=== PATIENT | female | born 1995 | race Caucasian/White ===

== ENCOUNTER 2016-09-06 20:44 | Emergency (ER) | payer OTHER ==
--- NOTE | 2016-09-06 21:48 | DIAGNOSTIC IMAGING REPORT ---
PROCEDURE: XR KNEE 4 VIEWS - RIGHT INDICATION: POST REDUCTION TECHNIQUE: Four views of the right knee. COMPARISON: None. FINDINGS: Normal mineralization. No fractures. Normal osseous alignment. No joint effusion. No suspicious soft-tissue calcification or radiodense foreign bodies. IMPRESSION: 1. Intact right knee.
--- NOTE | 2016-09-06 21:56 | ED NURSING NOTES ---
Clinical Report - Nurses [facility] [address] [place] [address] 09/06/2016 20:44 Patient: ISAÍAS ELAINE TRIAGE Triage time 20:50. Acuity: LEVEL 4. Chief Complaint: INJURY TO RIGHT KNEE. --21:00 Consuelo Denson R.N. 20:53 09/06/16. BP: 124/77 taken on the left arm, while lying. HR: 82 (regular and normal rate). RR: 18 (regular and unlabored). O2 saturation: 98%. Temp: 98.1 F (oral). Pain level now: 11/01. --21:00 Consuelo Denson R.N. Weight: 61.6 kg stated. Height/Length: 63 inches Per Patient. BMI: 24.1. --20:57 Consuelo Denson R.N. Medications None. --20:55 Consuelo Denson R.N. Allergies No Known Drug Allergy. --20:55 Consuelo Denson R.N. History Arrived by private vehicle. Historian: patient. Unaccompanied. Primary physician (none). This occurred today. ( pt thinks over extended while working out). 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 PAST MEDICAL HX: Tetanus status: up-to-date. Immunizations: up-to-date. Last normal menstrual period- July 2016. 2. Para 2. Sexual history - sexually active. No contraception. Denies current . SOCIAL HX: Never smoker. Occasional alcohol use; consumes wine by the glass occasionally. No drug use. No infectious disease exposure. ABUSE ASSESSMENT: No report of abuse. SELF HARM ASSESSMENT: A self harm assessment was performed. The patient answered "no" to the question "Have you recently felt down, depressed, or hopeless?", "Have you noticed less interest or pleasure in doing things?", "Do you have thoughts of harming or killing yourself?", "Are you here because you tried to hurt yourself?", "Have you ever tried to hurt yourself before today?", "Have you recently had thoughts about harming or killing others?" and "Do you have any dangerous items in your possession?". FALL RISK ASSESSMENT: Fall risk assessment completed. No fall risk identified. NUTRITIONAL RISK ASSESSMENT: The nutritional risk assessment revealed no deficiencies. FUNCTIONAL ASSESSMENT: Functional assessment: no impairments noted. LEARNING NEEDS ASSESSMENT: The learning needs assessment revealed no barriers. SKIN INTEGRITY ASSESSMENT: Skin integrity risk assessment completed. No skin integrity risk identified. --21:00 Consuelo Denson R.N. PROBLEMS: Tachycardia. Contusion. Fall. . --20:55 Consuelo Denson R.N. ADDITIONAL SURGERIES: Appendectomy. --20:55 Consuelo Denson R.N. . --20:55 Consuelo Denson R.N. Interventions ID band on patient. --21:00 Consuelo Denson R.N. PHYSICAL ASSESSMENT Ambulatory to room. GENERAL / NEURO / PSYCH: Oriented X 4. Alert. Appears in no acute distress. EXTREMITIES: Right knee: tenderness. SKIN: Skin intact. Skin is warm and dry. --21:00 Consuelo Denson R.N. NURSING PROGRESS NOTES Two patient identifiers checked. Call light placed in reach. Side rails up x 1. Bed placed in lowest position. Brakes of bed on. --21:01 Consuelo Denson R.N. Patient ready for evaluation- chart flagged. --21:01 Cosnuelo Denson R.N. 21:20 09/06/16. Patient returned from radiology by stretcher with tech. --21:20 Mariela Garcia R.N. DISPOSITION / DISCHARGE Condition at departure: improved. No learning barriers present. Discharge instructions provided and reviewed with the patient. Reviewed medication(s) side effects, precautions, dosing and course information. Prescription(s) given to the patient. Patient verbalized understanding. Written instructions provided in Guatemalan. No activity restrictions, note given or follow up contact number given. The patient was discharged home and unaccompanied at time of discharge. She left the Emergency Department ambulatory and via private vehicle. Patient driving. --22:11 Consuelo Denson R.N. 22:10 05/15/17. BP: deferred. HR: deferred. RR: deferred. O2 saturation: deferred. Temp: deferred. Pain level now deferred. --22:11 Consuelo Denson R.N. Departure time: 22:07. --22:12 Consuelo Denson R.N. Locked/Released at 09/06/2016 22:12 by Consuelo Denson R.N.
--- NOTE | 2016-09-06 21:56 | ED NURSING NOTES ---
Clinical Report - Nurses [facility] [address] [place] [address] 09/06/2016 20:44 Patient: ISAÍAS ELAINE TRIAGE Triage time 20:50. Acuity: LEVEL 4. Chief Complaint: INJURY TO RIGHT KNEE. --21:00 Consuelo Denson R.N. 20:53 09/06/16. BP: 124/77 taken on the left arm, while lying. HR: 82 (regular and normal rate). RR: 18 (regular and unlabored). O2 saturation: 98%. Temp: 98.1 F (oral). Pain level now: 11/01. --21:00 Consuelo Denson R.N. Weight: 61.6 kg stated. Height/Length: 63 inches Per Patient. BMI: 24.1. --20:57 Consuelo Denson R.N. Medications None. --20:55 Consuelo Denson R.N. Allergies No Known Drug Allergy. --20:55 Consuelo Denson R.N. History Arrived by private vehicle. Historian: patient. Unaccompanied. Primary physician (none). This occurred today. ( pt thinks over extended while working out). 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 PAST MEDICAL HX: Tetanus status: up-to-date. Immunizations: up-to-date. Last normal menstrual period- July 2016. 2. Para 2. Sexual history - sexually active. No contraception. Denies current . SOCIAL HX: Never smoker. Occasional alcohol use; consumes wine by the glass occasionally. No drug use. No infectious disease exposure. ABUSE ASSESSMENT: No report of abuse. SELF HARM ASSESSMENT: A self harm assessment was performed. The patient answered "no" to the question "Have you recently felt down, depressed, or hopeless?", "Have you noticed less interest or pleasure in doing things?", "Do you have thoughts of harming or killing yourself?", "Are you here because you tried to hurt yourself?", "Have you ever tried to hurt yourself before today?", "Have you recently had thoughts about harming or killing others?" and "Do you have any dangerous items in your possession?". FALL RISK ASSESSMENT: Fall risk assessment completed. No fall risk identified. NUTRITIONAL RISK ASSESSMENT: The nutritional risk assessment revealed no deficiencies. FUNCTIONAL ASSESSMENT: Functional assessment: no impairments noted. LEARNING NEEDS ASSESSMENT: The learning needs assessment revealed no barriers. SKIN INTEGRITY ASSESSMENT: Skin integrity risk assessment completed. No skin integrity risk identified. --21:00 Consuelo Denson R.N. PROBLEMS: Tachycardia. Contusion. Fall. . --20:55 Consuelo Denson R.N. ADDITIONAL SURGERIES: Appendectomy. --20:55 Consuelo Denson R.N. . --20:55 Consuelo Denson R.N. Interventions ID band on patient. --21:00 Consuelo Denson R.N. PHYSICAL ASSESSMENT Ambulatory to room. GENERAL / NEURO / PSYCH: Oriented X 4. Alert. Appears in no acute distress. EXTREMITIES: Right knee: tenderness. SKIN: Skin intact. Skin is warm and dry. --21:00 Consuelo Denson R.N. NURSING PROGRESS NOTES Two patient identifiers checked. Call light placed in reach. Side rails up x 1. Bed placed in lowest position. Brakes of bed on. --21:01 Consuelo Denson R.N. Patient ready for evaluation- chart flagged. --21:01 Consuelo Denson R.N. 21:20 09/06/16. Patient returned from radiology by stretcher with tech. --21:20 Mariela Garcia R.N. DISPOSITION / DISCHARGE Condition at departure: improved. No learning barriers present. Discharge instructions provided and reviewed with the patient. Reviewed medication(s) side effects, precautions, dosing and course information. Prescription(s) given to the patient. Patient verbalized understanding. Written instructions provided in Thai. No activity restrictions, note given or follow up contact number given. The patient was discharged home and unaccompanied at time of discharge. She left the Emergency Department ambulatory and via private vehicle. Patient driving. --22:11 Consuelo Denson R.N. 22:10 05/15/17. BP: deferred. HR: deferred. RR: deferred. O2 saturation: deferred. Temp: deferred. Pain level now deferred. --22:11 Consuelo Denson R.N. Departure time: 22:07. --22:12 Consuelo Denson R.N. Locked/Released at 09/06/2016 22:12 by Consuelo Denson R.N.
--- NOTE | 2016-09-06 21:56 | ED ORDER SUMMARY ---
..... Patient: ISAÍAS ELAINE OrderSheet [facility] VisitID: [id number] [address] [address] 20y, F Registration Date/Time: 09/06/2016 ORDER SHEET Weight: 61.6 kg (stated) Allergies: No Known Drug Allergy GENERAL ORDERS: Knee 4V Right Urgent (20:55 09/06/2016 HBivens A.R.N.P.) (Ack 21:01 Gee) (21:09 Yimi R.N.) Baldemar Wrap (21:53 09/06/2016 HBivens A.R.N.P.) (21:58 Yimi R.N.) MEDICATION ORDERS: IV FLUIDS: ORDER SHEET NOTES: [Electronically signed by Consuelo Denson R.N. (22:12 09/06/2016)] [Electronically signed by Ludmila Wu.R.N.P. (22:26 09/06/2016)] [Electronically locked/signed by Consuelo Denson R.N. (22:12 09/06/2016)]
--- NOTE | 2016-09-06 21:56 | ED CLINICAL REPORT ---
Clinical Report - Physicians/Mid Levels [facility] [address] [place] [address] 09/06/2016 20:44 Patient: ISAÍAS ELAINE Time Seen: 20:53; upon arrival, initial patient contact, initial documentation, patient care assumed. Arrived- By private vehicle. Historian- patient. HISTORY OF PRESENT ILLNESS Chief Complaint: Injury to right knee. The injury happened just prior to arrival. ( thinks she hyperextended it working out). Patient is experiencing moderate pain. Patient denies injury to the head or neck. No other injury. REVIEW OF SYSTEMS The patient complains of pain on weight bearing. No swelling, tingling, weakness, numbness or skin laceration. All systems otherwise negative, except as recorded above. PAST HISTORY See nurses notes. ( PROBLEMS: Tachycardia. Contusion. Fall. . --20:55 Consuelo Denson R.N. ADDITIONAL SURGERIES: Appendectomy. --20:55 Consuelo Denson R.N. . --20:55 Consuelo Denson, R.N.). SOCIAL HISTORY Never smoker. Occasional alcohol use; consumes wine. No drug use. No recent travel. Is a local resident. FAMILY HISTORY No significant family medical history. ADDITIONAL NOTES The nursing notes have been reviewed with agreement regarding the chief complaint, HPI, ROS, PMH and patient medications and allergies. PHYSICAL EXAM Vital Signs: 09/06/2016 20:53 BP: 124/77. HR: 82. RR: 18. O2 saturation: 98%. Temp: 98.1 F. Pain level now: 7/10. Have been reviewed as normal and appear to be correct. Appearance: Alert. Oriented X3. No acute distress. Head: Head atraumatic. Eyes: Pupils equal, round and reactive to light. Eyes normal inspection. Respiratory: No respiratory distress. Skin: Skin intact. Skin warm and dry. Normal skin color. Normal skin turgor. Extremities: Right knee: mild tenderness located in the patella, suprapatellar area and infrapatellar area. Neurovascular intact distally. No ligamentous laxity present. No joint effusion. No erythema, swelling, laceration, abrasion or ecchymosis. No puncture wound, foreign body or deformity. No limitation in ROM. Lower extremity exam otherwise negative. Extremities otherwise negative. Neuro, Vascular and Tendons: Vascular status intact. Sensation intact. Motor intact. Tendon function intact. Gait: Abnormal gait. Limping gait. Pain did not prevent testing gait. Neuro: Oriented X 3. No motor deficit. No sensory deficit. Note: isolated injury to knee. LABS, X-RAYS, AND EKG X-Rays: Right knee negative. Rt Knee X-ray: (IMPRESSION: 1. Intact right knee. Electronically Final signed by:Caryl Lynch MD 09/06/2016 9:48:19 PM). The X-rays were discussed with the radiologist. PROGRESS AND PROCEDURES Course of Care: 22:04 09/06/16. pt has leonid for frequent narcs, last rx 08/30 for #56 tylenol #3, pt getting narc rx almost weekly, #11 er visits and #8 of those for non emergent issues, see report for full details. Patient counseled in person regarding the patient's stable condition, test results and diagnosis. 2149. Differential Diagnosis: I considered fracture, stress fracture, bone contusion, sprain, hyperextension, dislocation, meniscus tear, anterior cruciate ligament tear, ligament tear, soft tissue injury, soft tissue hematoma and tendonitis as a possible cause of lower extremity pain in this patient. This is a partial list of diagnoses considered. Above considerations are based on history, physical exam, reassessment and X-Ray data. Differential diagnosis was discussed with patient. Disposition: Discharged home in good and improved condition (21:56). Condition: good and stable. CLINICAL IMPRESSION Sprain of the anterior cruciate ligament of the right knee. INSTRUCTIONS Apply ice for 20 minutes four times a day for one days until better. Don't apply ice directly to skin. Wear elastic wrap (Baldemar wrap) as directed for one weeks until better. Elevate affected areas above chest level for one days until better. Warnings: GENERAL WARNINGS: Return or contact your physician immediately if your condition worsens or changes unexpectedly, if not improving as expected, or if other problems arise. Specifically return if problem worsens. Prescription Medications: Naproxen 500 mg tablets: take 1 orally every 12 hours as needed for pain. Dispense twenty (20). No refills. Follow-up: Follow up with your doctor in about one week as needed. Call for an appointment. Summary of care provided to patient. Understanding of the discharge instructions verbalized by patient. (Electronically signed by Ludmila Wu A.R.N.P. 09/06/2016 22:26)
--- NOTE | 2016-09-06 21:56 | ED ORDER SUMMARY ---
..... Patient: ISAÍAS ELAINE OrderSheet [facility] VisitID: [id number] [address] [place] [address] 20y, F Registration Date/Time: 09/06/2016 ORDER SHEET Weight: 61.6 kg (stated) Allergies: No Known Drug Allergy GENERAL ORDERS: Knee 4V Right Urgent (20:55 09/06/2016 HBivens A.R.N.P.) (Ack 21:01 Gee) (21:09 Yimi R.N.) Baldemar Wrap (21:53 09/06/2016 HBivens A.R.N.P.) (21:58 Yimi R.N.) MEDICATION ORDERS: IV FLUIDS: ORDER SHEET NOTES: [Electronically signed by Consuelo Denson R.N. (22:12 09/06/2016)] [Electronically signed by Ludmila Wu.R.N.P. (22:26 09/06/2016)] [Electronically locked/signed by Consuelo Denson R.N. (22:12 09/06/2016)]
--- NOTE | 2016-09-06 22:26 | ED DISCHARGE INSTRUCTIONS ---
Patient: ISAÍAS ELAINE General Instructions [facility] VisitID: [id number] [address] [place] [address] 20y, F Registration Date/Time: 09/06/2016 Sprain of the anterior cruciate ligament of the right knee. INSTRUCTIONS Apply ice for 20 minutes four times a day for one days until better. Don't apply ice directly to skin. Wear elastic wrap (Baldemar wrap) as directed for one weeks until better. Elevate affected areas above chest level for one days until better. Warnings: GENERAL WARNINGS: Return or contact your physician immediately if your condition worsens or changes unexpectedly, if not improving as expected, or if other problems arise. Specifically return if problem worsens. Prescription Medications: Naproxen 500 mg tablets: take 1 orally every 12 hours as needed for pain. Dispense twenty (20). No refills. Follow-up: Follow up with your doctor in about one week as needed. Call for an appointment. Summary of care provided to patient. Understanding of the discharge instructions verbalized by patient. ADDITIONAL INFORMATION Sprain, Knee A sprain is an injury to the ligaments or capsule that holds a joint together. There are no broken bones. Most sprains take three to six weeks to heal. If the ligament is completely torn (severe sprain), it can take months to recover from. Most knee sprains are treated with a splint, knee immobilizer or elastic wrap for support. Severe sprains may require surgery. Home care The following guidelines will help you care for your injury at home: Stay off the injured leg as much as possible until you can walk on it without pain. If you have a lot of pain with walking, crutches or a walker may be prescribed. (These can be rented or purchased at many pharmacies and surgical or orthopedic supply stores). Follow your doctor's advice regarding when to begin bearing weight on that leg. Keep your leg elevated to reduce pain and swelling. When sleeping, place a pillow under the injured leg. When sitting, support the injured leg so it is level with your waist. This is very important during the first 48 hours. Apply an ice pack (ice cubes in a plastic bag, wrapped in a towel) over the injured area for 20 minutes every 12 hours the first day. You can place the ice pack directly over the splint. If a Velcro knee immobilizer was applied, you can open this to apply the ice pack directly to the knee. Continue with ice packs 34 times a day for the next two days, then as needed for the relief of pain and swelling. You may use acetaminophen or ibuprofen to control pain, unless another pain medicine was prescribed. If you have chronic liver or kidney disease or ever had a stomach ulcer or GI bleeding, talk with your doctor before using these medicines. If you were given a splint, keep it completely dry at all times. Bathe with your splint out of the water, protected with a large plastic bag, rubber-banded at the top end. If a fiberglass splint gets wet, you can dry it with a hair-dryer. If you have a Velcro knee immobilizer, you can remove this to bathe, unless told otherwise. Follow-up care Follow up with your doctor as advised. Any X-rays you had today dont show any broken bones, breaks, or fractures. Sometimes fractures dont show up on the first X-ray. Bruises and sprains can sometimes hurt as much as a fracture. These injuries can take time to heal completely. If your symptoms dont improve or they get worse, talk with your doctor. You may need a repeat X-ray. When to seek medical care Get prompt medical attention if any of the following occur: The plaster cast or splint becomes wet or soft The fiberglass cast or splint remains wet for more than 24 hours Pain or swelling increases Toes become cold, blue, numb or tingly Baldemar Wrap An "Baldemar Bandage" refers to any elastic bandage wrap (2-6" wide). This is used to apply support and compression to an arm or leg. It will help prevent or reduce swelling also. When applying the bandage, it should not be stretched too tightly. A tight Baldemar Wrap will reduce circulation and cause tingling or numbness in the hand or foot. It may increase the pain under the bandage. If you get these symptoms, remove the wrap and rest the limb. Symptoms should go away within 1-2 hours. Once symptoms go away, reapply the bandage with less stretch. If symptoms do not go away after 1-2 hours with the bandage off, call your doctor or return to this facility promptly. Naproxen Sodium Oral tablet What is this medicine? NAPROXEN (na PROX en) is a non-steroidal anti-inflammatory drug (NSAID). It is used to reduce swelling and to treat pain. This medicine may be used for dental pain, headache, or painful monthly periods. It is also used for painful joint and muscular problems such as arthritis, tendinitis, bursitis, and gout. How should I use this medicine? Take this medicine by mouth with a glass of water. Follow the directions on the prescription label. Take it with food if your stomach gets upset. Try to not lie down for at least 10 minutes after you take it. Take your medicine at regular intervals. Do not take your medicine more often than directed. Long-term, continuous use may increase the risk of heart attack or stroke. A special MedGuide will be given to you by the pharmacist with each prescription and refill. Be sure to read this information carefully each time. Talk to your fitness floor attendant regarding the use of this medicine in children. Special care may be needed. What side effects may I notice from receiving this medicine? Side effects that you should report to your doctor or health career development facilitator as soon as possible: black or bloody stools, blood in the urine or vomit blurred vision chest pain difficulty breathing or wheezing nausea or vomiting severe stomach pain skin rash, skin redness, blistering or peeling skin, hives, or itching slurred speech or weakness on one side of the body swelling of eyelids, throat, lips unexplained weight gain or swelling unusually weak or tired yellowing of eyes or skin Side effects that usually do not require medical attention (report to your doctor or health career development facilitator if they continue or are bothersome): constipation headache heartburn What may interact with this medicine? alcohol aspirin cidofovir diuretics lithium methotrexate other drugs for inflammation like ketorolac or prednisone pemetrexed probenecid warfarin What if I miss a dose? If you miss a dose, take it as soon as you can. If it is almost time for your next dose, take only that dose. Do not take double or extra doses. Where should I keep my medicine? Keep out of the reach of children. Store at room temperature between 15 and 30 degrees C (59 and 86 degrees F). Keep container tightly closed. Throw away any unused medicine after the expiration date. What should I tell my health care provider before I take this medicine? They need to know if you have any of these conditions: asthma cigarette smoker drink more than 3 alcohol containing drinks a day heart disease or circulation problems such as heart failure or leg edema (fluid retention) high blood pressure kidney disease liver disease stomach bleeding or ulcers an unusual or allergic reaction to naproxen, aspirin, other NSAIDs, other medicines, foods, dyes, or preservatives or trying to get breast-feeding What should I watch for while using this medicine? Tell your doctor or health career development facilitator if your pain does not get better. Talk to your doctor before taking another medicine for pain. Do not treat yourself. This medicine does not prevent heart attack or stroke. In fact, this medicine may increase the chance of a heart attack or stroke. The chance may increase with longer use of this medicine and in people who have heart disease. If you take aspirin to prevent heart attack or stroke, talk with your doctor or health career development facilitator. Do not take other medicines that contain aspirin, ibuprofen, or naproxen with this medicine. Side effects such as stomach upset, nausea, or ulcers may be more likely to occur. Many medicines available without a prescription should not be taken with this medicine. This medicine can cause ulcers and bleeding in the stomach and intestines at any time during treatment. Do not smoke cigarettes or drink alcohol. These increase irritation to your stomach and can make it more susceptible to damage from this medicine. Ulcers and bleeding can happen without warning symptoms and can cause . You may get drowsy or dizzy. Do not drive, use machinery, or do anything that needs mental alertness until you know how this medicine affects you. Do not stand or sit up quickly, especially if you are an older patient. This reduces the risk of dizzy or fainting spells. This medicine can cause you to bleed more easily. Try to avoid damage to your teeth and gums when you brush or floss your teeth. You have been given the following additional information: Knee Sprain Baldemar Wrap Naproxen Sodium Oral tablet (Electronically signed by Ludmila Wu A.R.N.P. 09/06/2016 22:26)
--- NOTE | 2016-09-06 22:26 | ED MAR SUMMARY ---
..... Medication Administration Record [facility] [address], [place] [id number] Patient: ISAÍAS ELAINE Visit ID: [id number] 20y, F Weight: 61.6 kg Height/Length: 63 in BMI: 24.1 ALLERGIES: No Known Drug Allergy
--- NOTE | 2016-09-06 22:26 | ED MAR SUMMARY ---
..... Medication Administration Record [facility] [address], [place] [id number] Patient: ISAÍAS ELAINE Visit ID: [id number] 20y, F Weight: 61.6 kg Height/Length: 63 in BMI: 24.1 ALLERGIES: No Known Drug Allergy
--- NOTE | 2016-09-06 22:26 | ED MED RECONCILIATION SUMMARY ---
Patient: ISAÍAS ELAINE Medication Reconciliation Report [facility] VisitID: [id number] [address] [place] [address] 20y, F Registration Date/Time: 09/06/2016 Weight: 61.6 kg Height/Length: 63 in. BMI: 24.1 ALLERGIES: No Known Drug Allergy The patient's Home Medications are listed below: NONE. The source(s) of the original Home Medication information: Not obtained. The following Medications were given to the patient in the Emergency Department: None. The following Medications were prescribed to the patient: Naproxen 500 mg tablets: take 1 orally every 12 hours as needed for pain. Dispense twenty (20). No refills. -- Ludmila Wu A.R.N.P.
--- NOTE | 2016-09-06 22:26 | ED MED RECONCILIATION SUMMARY ---
Patient: ISAÍAS ELAINE Medication Reconciliation Report [facility] VisitID: [id number] [address] [place] [address] 20y, F Registration Date/Time: 09/06/2016 Weight: 61.6 kg Height/Length: 63 in. BMI: 24.1 ALLERGIES: No Known Drug Allergy The patient's Home Medications are listed below: NONE. The source(s) of the original Home Medication information: Not obtained. The following Medications were given to the patient in the Emergency Department: None. The following Medications were prescribed to the patient: Naproxen 500 mg tablets: take 1 orally every 12 hours as needed for pain. Dispense twenty (20). No refills. -- Ludmila Wu A.R.N.P.
== END 2016-09-06 22:07 | disposition home or self-care (01) ==
LOC: ED SRH 20:44
DX: S83.511A Sprain of anterior cruciate ligament of right knee, initial encounter (principal); X50.0XXA Overexertion from strenuous movement or load, initial encounter; Y93.9 Activity, unspecified; Y92.9 Unspecified place or not applicable